=== PATIENT | female | born 1975 | race Caucasian/White ===

== ENCOUNTER 2018-04-08 06:23 | Day surgery (SDC) | payer OTHER ==
[2018-04-08] MEDS ORDERED: DESFLURANE 15 MIN (07:00)
[2018-04-08] MEDS ORDERED: FENTAnyl 50 MCG/ML VIAL (07:46)
[2018-04-08] MEDS ORDERED: MIDAZOLAM 1 MG/ML 2 ML INJ (07:56)
[2018-04-08] MEDS ORDERED: METOCLOPRAMIDE 10 MG INJ IV (08:00)
[2018-04-08] MEDS ORDERED: FENTAnyl 50 MCG/ML VIAL IV ×2 (08:00)
[2018-04-08] MEDS ORDERED: DIPHENHYDRAMINE 25 MG CAP PO (08:00)
[2018-04-08] MEDS ORDERED: ONDANSETRON 4 MG INJ IV ×2 (08:00)
[2018-04-08] MEDS ORDERED: CYCLOBENZAPRINE 10 MG TAB PO (08:00)
[2018-04-08] MEDS ORDERED: ACETAMINOPHEN 325 MG TAB PO (08:00)
[2018-04-08] MEDS ORDERED: MEPERIDINE 25 MG INJ IV (08:00)
[2018-04-08] MEDS ORDERED: HYDROmorphONE 1 MG/5 ML IV SYRINGE IV ×3 (08:00)
[2018-04-08] MEDS ORDERED: DIPHENHYDRAMINE 50 MG INJ IV ×2 (08:00)
[2018-04-08] MEDS ORDERED: CEPASTAT LOZENGE MT (08:00)
[2018-04-08] MEDS ORDERED: NALOXONE (0.4 MG/ML) INJ IV (08:00)
[2018-04-08] MEDS ORDERED: PROCHLORPERAZINE 10 MG TAB PO (08:00)
[2018-04-08] MEDS ORDERED: CEFAZOLIN 2 GM/50 ML (PMX) 50 ML IVPB (08:00)
[2018-04-08] MEDS ORDERED: HYDROmorphONE 0.5 MG/0.5 ML SYG IV (08:00)
[2018-04-08] MEDS ORDERED: HYDROCODONE/APAP (5/325) TAB PO ×2 (08:00)
[2018-04-08] MEDS ORDERED: ALBUTEROL 0.083% (NEB) 2.5 MG/3 ML AMP HHN (08:00)
[2018-04-08] MEDS ORDERED: DEXAMETHASONE 4 MG/ML 5 ML INJ (08:33)
[2018-04-08] MEDS ORDERED: IOHEXOL 300MG/ML 30 ML BTL (09:02)
[2018-04-08] MEDS ORDERED: THROMBIN 5000 UNIT VIAL (09:02)
[2018-04-08] MEDS: BUPIVACAINE 0.5%/EPI (SDV) 30 ML INJ (09:50)
[2018-04-08] MEDS: BUPIVACAINE 0.25% (MPF) 30 ML INJ (09:50)
[2018-04-08] MEDS: POLYMYXIN/BACITRACIN 1L IRRIG (09:50)
[2018-04-08] MEDS: THROMBIN 5000 UNIT VIAL ×2 (09:51)
[2018-04-08] MEDS: FENTAnyl 50 MCG/ML VIAL (09:52)
[2018-04-08] MEDS: CA CHLORIDE 10% 10 ML SYRINGE (09:52)
[2018-04-08] MEDS ORDERED: ROCURONIUM 50 MG INJ (10:07)
[2018-04-08] MEDS ORDERED: LIDOCAINE 100 MG SYRINGE (10:07)
[2018-04-08] MEDS ORDERED: SUCCINYLCHOLINE CHLORIDE 100 MG/5 ML SYG IV (10:07)
[2018-04-08] MEDS ORDERED: PROPOFOL 20 ML (10:07)
[2018-04-08] MEDS ORDERED: CEFAZOLIN 1 GM INJ (10:07)
[2018-04-08] MEDS ORDERED: SUGAMMADEX SODIUM 200 MG/2 ML VIAL IV (10:07)
[2018-04-08] MEDS: CEFAZOLIN 1 GM/50 ML (PMX) 50 ML IVPB (11:11)
== END 2018-04-08 12:40 | disposition home or self-care (01) ==
LOC: SDS 06:23
DX: M48.061 Spinal stenosis, lumbar region without neurogenic claudication (principal); M71.38 Other bursal cyst, other site; E66.01 Morbid (severe) obesity due to excess calories; Z68.43 Body mass index [BMI] 50.0-59.9, adult
CPT/HCPCS: 63047; 72100; 86850; 86900; 86901; 86999; 88304